=== PATIENT | male | born 1945 | race Caucasian/White ===

== ENCOUNTER → 2023-11-30 09:04 | Outpatient (REF) | payer MEDICARE, SELFPAY ==
[2023-11-30 09:58] LABS: Hematocrit 42.9 % (39.0-52.0); Mean Corpuscular Hgb 30.5 pg (27.0-31.0); Mean Corpuscular Volume 87.4 fL (80.0-94.0); Mean Platelet Volume 10.3 fL (7.4-10.4); Platelet Count 184 10^3/uL (130-400); Red Blood Cell Count 4.91 10^6/uL (4.70-6.10); Red Cell Dist. Width 12.8 % (11.5-14.5); White Blood Cell Count 5.5 10^3/uL (4.8-10.8)
[2023-11-30 10:38] LABS: Blood Urea Nitrogen 16 mg/dl (9-20); Calcium 9.2 mg/dl (8.4-10.2); Carbon Dioxide 25 mmol/L (22-30); Chloride 108 mmol/L (98-107); Glucose 128 mg/dl (70-99); Potassium 4.3 mmol/L (3.5-5.1); Sodium 138 mmol/L (135-145); eGFR > 60.00
== END ==
LOC: SDSPAT 09:04
PROVIDERS: ATTENDING PHYSICIAN Surgery; FAMILY PHYSICIAN Family Medicine
DX: Z01.818 Encounter for other preprocedural examination (principal)
CPT/HCPCS: 36415; 80048; 85027; 93005

== ENCOUNTER 2023-12-08 06:08 | Day surgery (SDC) | payer MEDICARE, SELFPAY ==
[2023-11-30 12:30] VITALS: BMI 25.9
[2023-12-08] VITALS (8 sets, daily range): BP systolic 117–143; BP diastolic 72–86; BMI 25.9
[2023-12-08] MEDS: NORMOSOL-R 1000 IV (06:51)
[2023-12-08] MEDS: TYLENOL 1000 MG PO (06:51)
[2023-12-08] MEDS: SUBLIMAZE 25 MCG IV (09:29)
[2023-12-08] MEDS: ROXICODONE 5 MG PO (11:05)
== END 2023-12-08 11:11 | disposition home or self-care (01) ==
LOC: SDS 06:08
PROVIDERS: ATTENDING PHYSICIAN Surgery
DX: K40.91 Unilateral inguinal hernia, without obstruction or gangrene, recurrent (principal)
CPT/HCPCS: 49520; C1781

== ENCOUNTER → 2024-02-15 18:19 | Outpatient (REF) | payer MEDICARE, SELFPAY | LOC: PAVMRI 18:19 | PROVIDERS: ATTENDING PHYSICIAN Orthopaedic Surgery; FAMILY PHYSICIAN Family Medicine | DX: M77.8 Other enthesopathies, not elsewhere classified (principal) | CPT/HCPCS: 73221 ==

== ENCOUNTER → 2024-09-28 19:27 | Outpatient (REF) | payer MEDICARE, SELFPAY | LOC: MRI 3T 19:27 | PROVIDERS: ATTENDING PHYSICIAN Internal Medicine Gastroenterology | DX: R10.13 Epigastric pain (principal); K86.81 Exocrine pancreatic insufficiency | CPT/HCPCS: 74183; A9575 ==

== ENCOUNTER 2025-01-28 12:36 | Emergency (ER) | payer MEDICARE, SELFPAY ==
[2025-01-28 12:47] VITALS: BP 141/92
[2025-01-28 13:05] LABS: % Basophils 0.7 % (0-2); % Eosinophils 6.8 % (0-6); % Immature Granulocytes 0.2 % (0-0.5); % Lymphocytes 28.9 % (20.5-51.1); % Monocytes 7.5 % (1.7-9.3); % Neutrophils 55.9 % (42.2-75.2); Absolute Eosinophils 0.4 10^3/uL (0-0.7); Absolute Lymphocytes 1.7 10^3/uL (1.2-3.4); Absolute Monocytes 0.4 10^3/uL (0.1-0.6); Absolute Neutrophils 3.2 10^3/uL (1.4-6.5); Hemoglobin 14.5 g/dL (13.0-18.0); Mean Corp Hgb Conc. 35.4 g/dL (33.0-37.0); Mean Corpuscular Volume 87.6 fL (80.0-94.0); Mean Platelet Volume 9.8 fL (7.4-10.4); Nucleated Red Blood Cells % 0 % (-); Platelet Count 169 10^3/uL (130-400); Red Blood Cell Count 4.68 10^6/uL (4.70-6.10); Red Cell Dist. Width 12.6 % (11.5-14.5); White Blood Cell Count 5.7 10^3/uL (4.8-10.8)
[2025-01-28 13:37] LABS: Troponin I < 0.012 ng/ml
[2025-01-28 13:38] LABS: ALT (SGPT) 22 U/L (0-50); AST (SGOT) 23 U/L (17-59); Alkaline Phosphatase 76 U/L (38-126); Blood Urea Nitrogen 16 mg/dl (9-20); Carbon Dioxide 25 mmol/L (22-30); Chloride 110 mmol/L (98-107); Glucose 108 mg/dl (70-99); Potassium 4.6 mmol/L (3.5-5.1); Sodium 141 mmol/L (135-145); Total Bilirubin 0.7 mg/dl (0.2-1.3); Total Protein 6.2 g/dl (6.3-8.2); eGFR > 60.00
--- NOTE | 2025-01-28 13:52 | ED.GENMED ---
History of Present Illness
General
Chief Complaint: Chest Pain
Source: patient
Exam Limitations: none
Time Seen by Provider: 01/28/25 13:51
History of Present Illness
History of Present Illness:
79yoM with a history of hyperlipidemia, type 2 diabetes, and prior superficial thrombophlebitis presenting for evaluation of chest pain. Symptoms initially began yesterday afternoon. He reports intermittent sharp pains in the left side of his
chest. Pain seems to come and go randomly and last several seconds at a time. Pain is non-radiating. He denies any exertional or pleuritic pain. He was pain-free initially after waking up this morning. He was getting out of [employer] around noon
today when he again experienced a sharp pain in his chest. Pain has resolved currently. He denies any associated symptoms including no diaphoresis, dizziness, syncope, paresthesias, shortness of breath, nausea, vomiting, leg swelling. Of note,
patient reports experiencing some left leg pain a few weeks ago after golfing. This pain has mostly resolved but he still continues to have a minor discomfort in his medial thigh. He exercises regularly and denies any history of chest pain/dyspnea
with activity. No tobacco use.
Past History
Past History
ED Past Surgical History: Bowel resection, Cholecystectomy, Orthopedic and Other (Hernia repair. Cataract surgery)
Phy Exam
General Physical Exam
General Presentation: well appearing and no apparent distress
General age: appears stated age
General Skin: warm and dry
General Habitus: normal
General Mental: alert
ENT Exam
ENT Exam: normocephalic
Cardiovascular Exam
Cardiovascular Exam: regular rate/rhythm, no edema, no murmur and normal peripheral pulses (2+ radial and DP pulses bilaterally)
Pulmonary Exam
Pulmonary Exam: lungs clear, no respiratory distress, no rales, chest non tender, no crackles and no rhonchi
Neurological Exam
Neurological Exam: alert
[place] Coma Scale
Eye Opening: Spontaneous
Verbal Response: Oriented
Motor Response: Obeys Commands
GCS Total Score: 15
Skin Exam
Skin Exam: normal color and warm/dry
Psychiatric Exam
Psychiatric Exam: normal mood/affect
Scores
Heart Score for Chest Pain Patients
STEMI patient?: No
History: Slightly or Non-Suspicious
ECG: Normal
Age: >/= 65 years
Risk Factors: 1 or 2 Risk Factors
Troponin: </= Normal Limit
Heart Score for Chest Pain Patients: 3
Heart Score Risk: 2.5% MACE over next 6 weeks
Course
Orders/Labs/Results
Orders:
Orders
01/28/25 12:37
ECG [Electrocardiogram (*1)] Urgent
Reason for Study: Chest Pain
EKG- Treatment ONCE
01/28/25 12:59
Complete Blood Count/With Diff Urgent
Comprehensive Metabolic Panel Urgent
Troponin I Urgent
01/28/25 14:07
Cardiac Monitoring- Treatment ONCE
Venous Doppler Lwr Ext Left [US Periph Venous LOWER Ext LT] Urgent
Comment:
Reason For Exam: L leg pain, hx of DVT
01/28/25 14:08
EKG- Treatment ONCE
CR Chest - 2 Views Urgent
Comment:
Reason For Exam: CP
01/28/25 15:51
Troponin I Urgent
01/28/25 16:00
Electrocardiogram (*1) Urgent
Reason for Study: Chest Pain
Abnormal Lab Results
01/28/25
12:59
RBC 4.68 L 10^6/uL
(4.70-6.10)
Eosinophils % 6.8 H %
(0-6)
Chloride 110 H mmol/L
(98-107)
Glucose 108 H mg/dl
(70-99)
Total Protein 6.2 L g/dl
(6.3-8.2)
01/28/25 12:59
01/28/25 12:59
Vital Signs
Initial and Last Documented VS:
Initial Vital Signs
Temp Pulse Resp BP Pulse Ox
98.4 F 61 18 141/92 100
01/28/25 12:47 01/28/25 12:47 01/28/25 12:47 01/28/25 12:47 01/28/25 12:47
Last Documented Vital Signs
Temp Pulse Resp BP Pulse Ox
98.4 F 55 15 128/79 100
01/28/25 12:47 01/28/25 16:01 01/28/25 16:01 01/28/25 15:20 01/28/25 16:01
MDM/Problems Addressed
Differential Diagnosis Includes:
79yoM here with chest pain. Sharp L sided chest pain lasting a few seconds at a time. Comes on randomly. No exertional or pleuritic symptoms. No diaphoresis, SOB, n/v. VSS. He is well appearing in no distress and has no chest pain on initial exam.
Exam reassuring. Differential diagnosis includes but is not limited to: ACS, musculoskeletal, pneumonia, pneumothorax, nonspecific chest pain, doubt PE as pain is not pleuritic and oxygen saturation is 100% on room air
Initial ED plan: Cardiac labs and EKG obtained in triage. EKG shows sinus bradycardia without ischemic changes and troponin WNL. Will check delta troponin/EKG, CXR, and venous duplex of LLE.
*EKG
Interpreted by ED Provider?: Yes
EKG Intrepretation Date: 01/28/25
Heart Rate: 55
Rate: bradycardiac
Rhythm: sinus
[place]: left axis deviation
Interval: normal interval
QRS Pattern: normal QRS
Ischemia: no ischemia
*Critical Care Note
Total Time (30-74mins, 75-104mins- exclusive of procedures): Not Applicable
Update Note
Update Note:
Repeat EKG/troponin unchanged. CXR is clear. Venous duplex negative for DVT. He continues to be asymptomatic on reassessment. No indication for hospitalization. Advised close f/u with PCP and cardiology. Strict ED return precautions discussed.
Patient in agreement with plan and was discharged in stable condition.
ED Attending Note
-
Portions of this chart may have been created with voice recognition software.� Occasional wrong word or��sound alike� substitutions may have occurred due to the inherent limitations of voice recognition software.
Discharge Plan
Departure
Patient Disposition: Home (Routine Discharge)
Date of Disposition: 01/28/25
Time of Disposition: 16:54
Patient with high blood pressure during this ER visit?: No
Discharge Problem:
Chest pain
Instructions: Chest pain - Discharge instructions
Prescriptions:
No Action
dutasteride 0.5 mg Capsule
0.5 mg PO DAILY
Creon 24,000-76,000 -120,000 unit Capsule,Delayed Release(Dr/Ec)
2 cap PO MEALS
acetaminophen [acetaminophen] 325 mg tablet
650 mg PO Q4HPRN PRN (Reason: mild pain) Qty: 1 0RF
ibuprofen 200 mg tablet
400 - 600 mg PO Q6HPRN PRN (Reason: moderate pain) Qty: 1 0RF
oxycodone 5 mg tablet
5 mg PO Q4HPRN PRN (Reason: breakthrough/severe pain) Qty: 10 0RF
Referrals:
Jeanie Pearl MD [Active] -
Celestino Huynh MD [Family Provider] -
Activity Restrictions/Additional Instructions:
Please call tomorrow to schedule a follow-up with your family doctor and cardiology. Return to the ER immediately with any new or worsening symptoms.
Interventions
Interventions:
*Risk Screen - Suicide Last Done: 01/28/25 12:47
*General Assessment Last Done: 01/28/25 12:47
*Neglect/Abuse Screening Last Done: 01/28/25 12:47
*ED- Fall Risk Assessment Last Done: 01/28/25 14:16
*ED COVID-19 Vaccine History Last Done: 01/28/25 14:16
*Nursing Disposition Last Done: 01/28/25 17:02
ED- Cardiac Assessment Last Done: 01/28/25 14:16
Discharge Date and Time
Discharge Date/Time: 01/28/25 17:04
Print Language: PERSIAN
[2025-01-28 13:55] VITALS: BMI 25.2
[2025-01-28 13:57] VITALS: BP 148/73
[2025-01-28 14:18] VITALS: BP 141/79
[2025-01-28 15:20] VITALS: BP 128/79
[2025-01-28 16:21] LABS: Troponin I < 0.012 ng/ml
== END 2025-01-28 17:04 | disposition home or self-care (01) ==
LOC: EMR 12:36
PROVIDERS: Emergency Medicine; Physician Assistant; EMERGENCY PHYSICIAN Emergency Medicine; FAMILY PHYSICIAN Student in an Organized Health Care Education/Training Program
DX: R07.9 Chest pain, unspecified (principal); M79.652 Pain in left thigh; R00.1 Bradycardia, unspecified; E11.9 Type 2 diabetes mellitus without complications; E78.5 Hyperlipidemia, unspecified; Z90.49 Acquired absence of other specified parts of digestive tract; Z86.718 Personal history of other venous thrombosis and embolism
CPT/HCPCS: 99285; 71046; 80053; 84484; 85025; 93005; 93971

== ENCOUNTER → 2025-05-10 10:09 | Outpatient (REF) | payer MEDICARE, SELFPAY | LOC: RAD 10:09 | PROVIDERS: ATTENDING PHYSICIAN Nurse Practitioner; FAMILY PHYSICIAN Student in an Organized Health Care Education/Training Program | DX: M79.604 Pain in right leg (principal); M79.89 Other specified soft tissue disorders | CPT/HCPCS: 93971 ==

== ENCOUNTER → 2025-05-18 06:54 | Outpatient (REF) | payer MEDICARE, SELFPAY | LOC: RAD 06:54 | PROVIDERS: ATTENDING PHYSICIAN Surgery Vascular Surgery; FAMILY PHYSICIAN Student in an Organized Health Care Education/Training Program | DX: I73.9 Peripheral vascular disease, unspecified (principal) | CPT/HCPCS: 93922; 93925 ==

== ENCOUNTER → 2025-07-04 13:34 | Outpatient (REF) | payer MEDICARE, SELFPAY | LOC: PAVMRI 13:34 | PROVIDERS: ATTENDING PHYSICIAN Internal Medicine Gastroenterology; FAMILY PHYSICIAN Student in an Organized Health Care Education/Training Program | DX: K86.81 Exocrine pancreatic insufficiency (principal); R10.13 Epigastric pain | CPT/HCPCS: 74183; A9575 ==